=== PATIENT | female | born 1995 | race Hispanic/Latino ===

== ENCOUNTER 2018-10-22 10:38 | Emergency (ER) | payer SELFPAY ==
[2018-10-22] MEDS ORDERED: Acetaminophen 500 MG TAB ONE (11:28)
[2018-10-22] MEDS ORDERED: Promethazine 25 MG TAB ONE (11:28)
== END 2018-10-22 11:35 | disposition home or self-care (01) ==
LOC: BURERS 10:38
DX: O99.519 Diseases of the respiratory system complicating pregnancy, unspecified trimester (principal); J10.1 Influenza due to other identified influenza virus with other respiratory manifestations; Z3A.00 Weeks of gestation of pregnancy not specified
CPT/HCPCS: 87804; 99283; Q0169

== ENCOUNTER → 2018-12-15 | Emergency (ER) | payer MEDICAID ==
[2018-12-15 17:24] LABS: #Eosinphils 0.1 thou/uL (0.0-0.7); #Lymphocytes 1.8 thou/uL (1.20-3.40); #Monocytes 0.5 thou/uL (0.11-0.59); #Neutrophils 5.1 thou/uL (1.40-6.50); %Basophils 0.5 % (0.0-1.0); %Lymphocytes 23.8 % (21.0-51.0); %Monocytes 6.1 % (0.0-10.0); %Neutrophils 67.6 % (42.0-75.0); Hemoglobin 13.3 g/dL (12.0-16.0); Mean Corpuscular HGB CONC 32.7 g/dL (32.0-36.0); Mean Corpuscular Hemoglobin 28.7 pg (27.0-31.0); Mean Corpuscular Volume 87.7 fL (78.0-98.0); Mean Platelet Volume 8.4 fL (7.4-10.4); Platelet Count 201 thou/uL (130-400); RBC Distribution Width 11.9 % (11.5-14.5); Red Blood Cell (RBC) Count 4.63 mill/uL (4.20-5.40); White Blood Cell (WBC) Count 7.5 thou/uL (4.8-10.8)
[2018-12-15 17:40] LABS: ALT (SGPT) 19 U/L (8-55); AST (SGOT) 16 U/L (5-34); Albumin 3.9 g/dL (3.5-5.0); Alkaline Phosphatase 58 U/L (40-150); Anion Gap 14 mmol/L (10-20); BUN (Urea Nitrogen) 7 mg/dL (7.0-18.7); Bilirubin, Total 0.4 mg/dL (0.2-1.2); Calc. Creatinine Clearance 0 mL/min (70-130); Calcium 9.4 mg/dL (7.8-10.44); Carbon Dioxide 19 mmol/L (22-29); Chloride 109 mmol/L (98-107); Estimated GFR-MDRD Greater than 90; Glucose 78 mg/dL (70-105); Lipase 20 U/L (8-78); Potassium 3.5 mmol/L (3.5-5.1); Protein, Total 6.9 g/dL (6.0-8.3); Sodium 138 mmol/L (136-145)
== END ==
LOC: BURERS 16:50
DX: O99.89 Other specified diseases and conditions complicating pregnancy, childbirth and the puerperium (principal); R00.2 Palpitations; O99.342 Other mental disorders complicating pregnancy, second trimester; F41.9 Anxiety disorder, unspecified; O99.612 Diseases of the digestive system complicating pregnancy, second trimester; K58.9 Irritable bowel syndrome, unspecified; Z3A.14 14 weeks gestation of pregnancy
CPT/HCPCS: 80053; 83690; 84484; 85025; 93005